=== PATIENT | female | born 2000 | race Caucasian/White ===

== ENCOUNTER 2025-03-24 10:13 | Inpatient (IN) | payer MEDICAID, OTHER, SELFPAY ==
[2025-03-23 13:25] LABS: Hematocrit 39.7 % (34.9-44.5); Hemoglobin 13.0 g/dL (12.0-15.5); Platelet Count 279 10x3/uL (150-450)
[2025-03-23 14:00] LABS: Hep B Surf Ag Non-Reactive S/CO (NonReactive)
[2025-03-23 14:01] LABS: Syphilis Antibody Index 0.11 S/CO (<1.00 Non-Reactive)
[~2025-03-24 10:13] MED LIST: HYDROcodone/Acetaminophen 5/325 mg Tablet PO PRN
[2025-03-24] MEDS ORDERED: Tranexamic Acid 1,000 MG/10 ML VIAL IVP PRN (11:10)
[2025-03-24] MEDS ORDERED: diphenhydrAMINE 50 MG/ML VIAL IVP PRN ×2 (11:10→13:17)
[2025-03-24] MEDS ORDERED: Methylergonovine 0.2 MG/ML VIAL IM PRN ×2 (11:10→15:20)
[2025-03-24] MEDS ORDERED: Meperidine HCl/PF 25 MG (1 mL) VIAL SLOW IVP PRN ×2 (11:10→13:17)
[2025-03-24] MEDS ORDERED: Famotidine/PF 20 mg/2ml Vial SLOW IVP PRN (11:10)
[2025-03-24] MEDS ORDERED: Carboprost 250 MCG/ML AMP IM PRN (11:10)
[2025-03-24] MEDS ORDERED: Bicitra 30 ML UDCUP PO PRN (11:10)
[2025-03-24] MEDS ORDERED: Ondansetron PF 4 MG/2 ML Vial IVP PRN ×5 (11:10→13:17)
[2025-03-24] MEDS ORDERED: HYDROmorphone 0.5 MG/0.5 ML SYRINGE SLOW IVP PRN ×2 (11:10→13:17)
[2025-03-24] MEDS ORDERED: hydrALAZINE 20 MG/ML VIAL SLOW IVP PRN ×2 (11:10→15:20)
[2025-03-24 11:13] VITALS: BMI 23.1
[2025-03-24] MEDS ORDERED: Oxytocin 30 units/NS 500 ML 500 ML IV SCH ×2 (11:15→15:20)
[2025-03-24] MEDS ORDERED: Communication Order-Pharmacy FS SCH ×2 (11:15→13:30)
[2025-03-24] MEDS ORDERED: Ketorolac Tromethamine 30 MG (1 mL) VIAL IVP SCH ×2 (11:15→13:30)
[2025-03-24] MEDS ORDERED: Ketorolac Tromethamine 30 MG (1 mL) VIAL IVP PRN (13:17)
[2025-03-24] MEDS ORDERED: Boostrix 0.5 ML (Tdap) VIAL (>/=7 yrs of age) IM ONE (15:20)
[2025-03-24] MEDS ORDERED: Lanolin Ointment 7 GM TUBE TOP PRN (15:20)
[2025-03-24] MEDS: Ondansetron PF 4 MG/2 ML Vial ONE ×2 (17:15)
[2025-03-24] MEDS: Oxytocin 10 UNITS/ML VIAL ONE ×2 (17:15→17:16)
[2025-03-24] MEDS: PHENYLEPHRINE-NS 100 MCG/ML 10 ML SYRINGE ONE (17:15)
[2025-03-24] MEDS: Ketorolac Tromethamine 30 MG (1 mL) VIAL IVP PRN (21:18)
[2025-03-25] MEDS: HYDROcodone/Acetaminophen 5/325 mg Tablet PO PRN (00:54)
[2025-03-25 04:47] LABS: Hematocrit 31.2 % (34.9-44.5); Hemoglobin 10.3 g/dL (12.0-15.5); Mean Corpuscular Hemoglobin 27.6 pg (27.0-33.0); Mean Corpuscular Volume 83.6 fL (81.6-98.3); Platelet Count 227 10x3/uL (150-450); Red Blood Cell (RBC) Count 3.73 10x6/uL (3.90-5.03); White Blood Cell (WBC) Count 11.22 10x3/uL (3.5-10.5)
[2025-03-25] MEDS: Ferrous Sulfate 325 MG TAB PO SCH (08:14)
[2025-03-26] MEDS: Ibuprofen 800 MG TAB PO SCH (01:15)
[2025-03-26] MEDS: Simethicone Chewable 80 MG TAB PO PRN (10:07)
[2025-03-26] MEDS: Cyclobenzaprine 10 MG TAB PO SCH (11:26)
[2025-03-27 11:37] VITALS: BP 104/59; TEMP 98.4
[2025-03-27] MEDS: HYDROcodone/Acetaminophen 5/325 mg Tablet PO PRN (14:27)
== END 2025-03-27 16:20 | disposition home or self-care (01) | DRG 787 ==
LOC: CSHLD 10:13 → CSHPP 15:15
PROVIDERS: ADMIT Family Medicine; ATTEND Family Medicine
PROC: 10D00Z1 Extraction of Products of Conception, Low, Open Approach (ICD-10-PCS; principal; 2025-03-24)
DX: O32.1XX0 Maternal care for breech presentation, not applicable or unspecified (principal); D62 Acute posthemorrhagic anemia; Z3A.39 39 weeks gestation of pregnancy; Z37.0 Single live birth; O90.81 Anemia of the puerperium
CPT/HCPCS: 36415; 51702; 85014; 85018; 85027; 85049; 86780; 86850; 86900; 86901; 87340; J1885; J2274; J2405; J2590; J3010